=== PATIENT | female | born 2000 | race Caucasian/White ===

== ENCOUNTER 2022-10-29 08:39 | Emergency (ER) | payer SELFPAY ==
[~2022-10-29] VITALS: Ht 154.9 cm; Wt 59.0 kg
[2022-10-29 08:43] VITALS: BP 116/81
[2022-10-29] MEDS ORDERED: LIDOCAINE 5% PATCH TOP SCH (09:45)
[2022-10-29] MEDS ORDERED: LIDO700A30 TP (10:41)
== END 2022-10-29 11:36 | disposition home or self-care (01) ==
LOC: ER 08:39
DX: R07.89 Other chest pain (principal)
CPT/HCPCS: 71045; 81025; 93005; 99283